=== PATIENT | female | born 1970 | race Caucasian/White ===

== ENCOUNTER 2016-09-25 10:59 | Inpatient (IN) | payer BC ==
--- NOTE | ~2016-09-25 | DS ---
Discharge Summary [facility] [address] [place]. [address] NAME: ANISA ROONEY : 66 STATUS : DIS IN PAT#: [id number] AGE: 46 ADM/REG DATE : 09/25/16 MR#: [id number] REPORT SERV DATE: 09/28/16 DICTATED BY: FRANCISCO JAVIER TANG DATE: 09/27/16 REPORT STATUS : Draft TRANSCRIBED BY: MODL DATE: 09/27/16 ADMISSION DATE: 09/25/2016 DISCHARGE DATE: 09/27/2016 DISCHARGE DIAGNOSES: 1. Gastroenteritis. 2. Urinary tract infection. 3. Anxiety disorder. INVASIVE PROCEDURES DONE DURING THIS HOSPITALIZATION: None. CONSULTANTS DURING THIS HOSPITALIZATION: Dr. Taran Ivy of Urology. BRIEF HISTORY OF PRESENT ILLNESS: The patient is a 46-year-old white female presented with nausea, vomiting, abdominal pain, and diarrhea for three days, so she was admitted. For detailed history and physical exam, please see note dictated by Dr. Barb Murray on 09/25/2016. HOSPITAL COURSE: After being admitted to the hospital, this patient was given copious amounts of IV fluids. A CT scan of the abdomen showed some inflammatory changes in the intestines consistent with enteritis. She was initially placed on Levaquin and Flagyl. There was some thought about urinary tract infection. Her urine culture did show greater than 100,000 gram-negative colony-forming units, so we continued the Levaquin and the Flagyl and they were switched to oral. This patient is currently tolerating liquids. Of incidental note, on the CT scan, there was a finding of right renal mass; so Dr. Ivy saw the patient in consultation and recommended that she follow up with him in the office as an outpatient for further treatment and evaluation. Once she felt better and she was tolerating liquids, we switched her to oral medications, and her lab work remained all stable, her white count was normal as well. Her diarrhea had significantly improved, so she is being discharged in the home setting. DISCHARGE DISPOSITION: Home. DISCHARGE ACTIVITY: As tolerated. DISCHARGE DIET: GI soft diet. DISCHARGE MEDICATIONS: Zofran 4 mg ODT q.6 p.r.n. for nausea; Klonopin 1 mg three times daily, #45 with no refills given; Levaquin 750 mg p.o. once daily for three days; Flagyl 500 mg p.o. every 8 hours for three more days; Pepcid 20 mg once daily. DISCHARGE FOLLOWUP: With the patient's primary care physician in one week, with the patient's psychiatrist as scheduled previously. More than 30 minutes spent planning this patient's discharge, reconciling medications, writing prescriptions, discussing hospital care, and followup with the patient. [address]charge Summary [address] [place] [address] NAME: ANISA ROONEY : 66 STATUS : DIS IN PAT#: [id number] AGE: 46 ADM/REG DATE : 09/25/16 MR#: [id number] REPORT SERV DATE: 09/28/16 DICTATED BY: FRANCISCO JAVIER TANG DATE: 09/27/16 REPORT STATUS : Draft TRANSCRIBED BY: GUNNAR DATE: 09/27/16 DICTATED BY: Poncho Palacios/GUNNAR Francisco Javier Tang M.D. / [id number] CC: Francisco Javier Tang M.D.
--- NOTE | ~2016-09-25 | CN ---
Consultation Report [facility] [address] [place]. [address] NAME: ANISA ROONEY : 66 STATUS : ADM IN [facility]#: [id number] AGE: 46 ADM/REG DATE : 09/25/16 MR#: [id number] REPORT SERV DATE: 09/26/16 DICTATED BY: TITO IVY DATE: 09/26/16 REPORT STATUS : Draft TRANSCRIBED BY: MODL DATE: 09/26/16 CONSULTATION DATE OF CONSULTATION: 09/26/2016 REASON FOR CONSULTATION: Right renal mass. HISTORY OF PRESENT ILLNESS: Ms. Rooney is a 46-year-old female admitted to the hospital with acute gastrointestinal illness likely colitis/enteritis. She had a CT scan to evaluate her abdominal pain, nausea, and vomiting. 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 She denies family history of genitourinary malignancy. She has no flank pain or hematuria. I have been asked to consult given these findings. PAST MEDICAL HISTORY: Notable for anxiety, urinary tract infection, renal mass as listed above. SURGICAL HISTORY: Includes D and C. SOCIAL HISTORY: Does not smoke, drink, or use illegal drugs. ALLERGIES: DOXYCYCLINE AND MINOCYCLINE. FAMILY HISTORY: No genitourinary cancer. MEDICATIONS: Reviewed and are on the chart. REVIEW OF SYSTEMS: A 12-point review of systems was performed. Pertinent positives are listed in the HPI. PHYSICAL EXAMINATION: VITAL SIGNS: Temperature 98.5, pulse is 56, blood pressure 106/57, 99% on room air. GENERAL: She is in no acute distress. She appears her stated age. HEENT: Head is normocephalic and atraumatic. LUNGS: Breathing is nonlabored. She is not in respiratory distress. Pulse is regular in rate and rhythm. ABDOMEN: Soft, nontender, nondistended. She has no CVA tenderness. NEURO: She is alert and oriented x3. LABORATORY DATA: White count 8.1, hemoglobin 13.4. Creatinine is 0.58. Urinalysis is positive for infection. IMAGING: CT scan of the abdomen and pelvis was personally reviewed and interpreted by myself. She has a 3.5 cm cystic right renal mass with nodular enhancement consistent with Consultation Report [facility] [address] [place]. [address] NAME: ANISA ROONEY : 66 STATUS : ADM IN PAT#: [id number] AGE: 46 ADM/REG DATE : 09/25/16 MR#: [id number] REPORT SERV DATE: 09/26/16 DICTATED BY: TITO IVY DATE: 09/26/16 REPORT STATUS : Draft TRANSCRIBED BY: MODL DATE: 09/26/16 cystic renal cell carcinoma. ASSESSMENT AND PLAN: 1. Cystitis. 2. Enhancing right renal mass. PLAN: Ms. Rooney has enhancing right renal mass concerning for renal cell carcinoma, clinical stage T1a. Given her young age and characteristics of the mass, she be best served with a robotic partial nephrectomy in the future. The risks and benefits, expected outcomes, were discussed in detail regarding this procedure. This was discussed with her as well. This will be scheduled as an elective procedure in October. to answer more of their questions. With regard to her bacterial urinary tract infection, please follow up the culture and treat as appropriate. Thank you for this consultation. I will continue to follow with you. CHICHO/GUNNAR Tito Ivy MD / [id number] CC: Tito Ivy MD
--- NOTE | ~2016-09-25 | HP ---
History And Physical [facility] [address] [facility] [place]. [address] NAME: ANISA ROONEY : 66 STATUS : ADM IN [facility]#: [id number] AGE: 46 ADM/REG DATE : 09/25/16 MR#: [id number] REPORT SERV DATE: 09/25/16 DICTATED BY: BARB MOTLEY DATE: 09/25/16 REPORT STATUS : Draft TRANSCRIBED BY: MODNewton DATE: 09/25/16 DATE OF ADMISSION: 09/25/2016 CHIEF COMPLAINT: Abdominal pain, nausea, vomiting, and diarrhea for three days. HISTORY OF PRESENT ILLNESS: This is a 46-year-old female with past medical history significant for anxiety disorder, she is treated by Dr. Luther Badillo, her psychiatrist, history of recurrent urinary tract infections. She does not have a primary care provider, and she is presenting today to [facility] with a three-day history of nausea, vomiting, diarrhea, and abdominal pain. It is important to note that the patient according to her, she has a history of anxiety disorder. Her psychiatrist according to the patient changed her Ativan and Xanax for one week, started her on Klonopin for her anxiety, but for three days, she has been presenting with abdominal pain, diarrhea, nausea, vomiting, and severe weakness. She says she has not experienced these episodes before and she has not taken any antibiotics recently. She did not have any fever. She denies any increased urinary frequency or urgency. No hematemesis. No melena. No hematochezia. No other complaints. The patient denies any recent hospitalization. After initial evaluation in the emergency room, Hospitalist Service has been asked for admission, further evaluation, and treatment. PAST MEDICAL HISTORY: Significant for anxiety disorder and urinary tract infection. PAST SURGICAL HISTORY: Includes D and C. SOCIAL HISTORY: Denies tobacco, alcohol, or IV drugs. ALLERGIES: SHE IS ALLERGIC TO DOXYCYCLINE AND MINOCYCLINE. FAMILY HISTORY: Significant for cancer. MEDICATIONS: Listed as her home medications include Klonopin. REVIEW OF SYSTEMS: A 14-point review of system has been obtained and pertinent positives have been listed into the history of present illness. Otherwise, negative except those underlying above. PHYSICAL EXAMINATION: VITAL SIGNS: Currently, the patient is afebrile. Blood pressure 107/54, heart rate 54, respiratory rate 10 to 12, saturating 100% on room air. GENERAL: She is a very pleasant, ill-appearing female, in no acute distress. She is alert and oriented x3. She is nonfocal. She follows all her commands appropriately. HEENT: Show pupils are equal, round, and reactive to light. Extraocular movements intact. NECK: No JVD. No lymphadenopathy. No thyromegaly appreciated. CHEST: Eval shows bilateral air entry. Clear anteroposterior. No wheezes, crackles, or rhonchi appreciated. CARDIOVASCULAR: She has regular rate and rhythm. S1, S2 positive. No S3, no S4. No History And Physical [address] [place]. [address] NAME: ANISA ROONEY : 66 STATUS : ADM IN [facility]#: [id number] AGE: 46 ADM/REG DATE : 09/25/16 MR#: [id number] REPORT SERV DATE: 09/25/16 DICTATED BY: BARB MOTLEY DATE: 09/25/16 REPORT STATUS : Draft TRANSCRIBED BY: GUNNAR DATE: 09/25/16 murmurs, rubs, or gallops appreciated. ABDOMEN: Soft, mildly tender throughout, but no guarding, no rebound. EXTREMITIES: No clubbing, cyanosis, or edema. NEUROLOGIC: She is alert and oriented x3. She is nonfocal. She follows all her commands appropriately. LABORATORY DATA: Labs from today include sodium 141, potassium 4, chloride 107, CO2 of 27, BUN 11, creatinine 0.49, glucose is 97. Her total protein 6.7, albumin 2.8, globulin 3.9, total bilirubin 0.6, alkaline phosphatase 76, ALT 24, AST 32, lipase 87. Serum test has been negative. White count 4.9, hemoglobin 13.6, hematocrit 37.9, and platelets 202. Her UA has been positive for leukocyte esterase and nitrites, 8 white cells, and few bacteria. Urine cultures are pending. UDS positive for amphetamine and opiates. There is a CT of the abdomen and pelvis performed in the emergency room which has shown partial exophytic mass in the mild to the right kidney with cystic enhancing nodular component about 35 x 19 mm highly concerning for primary renal neoplasm, less likely representing an abscess. There is some induration of the surrounding fat planes. No renal or vein thrombosis or lymphadenopathy appreciated. Multiple fluid-filled small bowel loops in the abdomen, possible enteritis, and colon has diffusely thickened appearance, possibly related to colitis. The appendix is not visualized. There is no pericecal inflammation to suggest an acute appendicitis, and trace fluid in the pelvis present. ASSESSMENT AND PLAN: 1. This is a very pleasant 46-year-old female with nausea, vomiting, and diarrhea likely colitis/enteritis. 2. Urinary tract infection. 3. Newly diagnosed right upper and mid cystic mass measuring 35 x 19 mm, concerning for a primary renal neoplasm. 4. Depression with anxiety. 5. Severe dehydration. PLAN: 1. The patient is going to be admitted to Hospitalist Service regarding her nausea, vomiting, and diarrhea. We are going to keep her on clear liquid diet, provide supportive care, check her stools, and place her on Levaquin and Flagyl. Protonix IV as well daily. 2. Urinary tract infection. IV fluids. Check urinary cultures and place her on antibiotics. 3. Right kidney mass. We will get a renal ultrasound and consult Urology for further recommendation. 4. Depression and anxiety. Continue her Klonopin p.r.n. Ativan for severe agitation and consult Psychiatry, Dr. Bustos, for further recommendation. 5. We will provide supportive care, nausea, and pain control as well as GI and DVT prophylaxis that has been discussed extensively with the patient. All the questions have been answered in full. Further workup and recommendation pending above. History And Physical [address] [address] NAME: ANISA ROONEY : 66 STATUS : ADM IN [facility]#: [id number] AGE: 46 ADM/REG DATE : 09/25/16 MR#: [id number] REPORT SERV DATE: 09/25/16 DICTATED BY: BARB MOTLEY DATE: 09/25/16 REPORT STATUS : Draft TRANSCRIBED BY: MODL DATE: 09/25/16 It is worthwhile to note that the patient is going to be followed up by Dr. Francisco Javier Tang. CF/GUNNAR Barb Motley M.D. / [id number] CC: Poncho Singleton M.D.
[2016-09-25 13:48] LABS: BASOPHILS 0.2 %; BASOPHILS ABSOLUTE 0.01 10/3/uL (0.0-0.16); EOSINOPHILS 0.2 %; EOSINOPHILS ABSOLUTE 0.01 10/3/uL (0.0-0.53); HEMOGLOBIN 13.6 g/dL (12.0-16.0); IMMATURE GRANULOCYTES 0.4 %; IMMATURE GRANULOCYTES ABSOLUTE 0.02 10/3/uL (0.0-0.11); LYMPHOCYTES 12.1 %; MEAN CORPUSCULAR HEMOGLOB 31.9 pg (26.0-34.0); MEAN PLATELET VOLUME 10.2 fL (9.2-13.0); MONOCYTES 6.9 %; MONOCYTES ABSOLUTE 0.34 10/3/uL (0.21-1.20); NEUTROPHILS 80.2 %; NEUTROPHILS ABSOLUTE 3.96 10/3/uL (2.02-8.40); PLATELET COUNT 202 10/3/uL (150-400); RBC DISTRIBUTION WIDTH 12.5 % (12.0-16.0); RED CELL COUNT 4.27 10/6/uL (4.0-5.6); WHITE BLOOD CELLS 4.9 10/3/uL (4.5-10.5)
[2016-09-25 13:49] LABS: HEMATOCRIT 37.9 % (36.0-48.0); MANUAL DIFF NO %; MEAN CORPUS HGB CONC 35.9 g/dL (32.0-36.0); MEAN CORPUSCULAR VOLUME 88.8 fL (80-100)
[2016-09-25 14:04] LABS: BUN (BLOOD UREA NITROGEN) 11 MG/DL (6-23); CALCIUM, SERUM 8.3 MG/DL (8.5-10.4); CHLORIDE, SERUM 107 MMOL/L (96-112); CO2 (CARBON DIOXIDE) 27 MMOL/L (24-34); CREATININE 0.49 MG/DL (0.55-1.02); GFR AFRICAN AMERICAN 134 ML/MIN (>=60); GFR NON AFRICAN AMERICAN 115 ML/MIN (>=60); GLUCOSE, SERUM 97 MG/DL (60-99); SGPT(ALT) 24 U/L (5-65); SODIUM, SERUM 141 MMOL/L (135-148); TOTAL BILIRUBIN 0.6 MG/DL (0-1.2); TOTAL PROTEIN 6.7 G/DL (6.0-8.5)
[2016-09-25 14:05] LABS: A/G RATIO 0.7 (0.7-1.9); ALBUMIN 2.8 G/DL (3.5-5.0); ALKALINE PHOSPHATASE 76 U/L (45-117); GLOBULIN 3.9 G/DL (2.5-4.1); SGOT(AST) 32 U/L (5-40)
[2016-09-25 16:27] LABS: ASCORBIC ACID (UR NOT ORDER) NEG (NEG); BILIRUBIN, URINE NEGATIVE (NEG); ER URINALYSIS TAT 0 Hrs 10 Mins; KETONE, URINE 80 MG/DL (NEG); LEUKOCYTE ESTERASE(NOT OR MOD (NEG); NITRITE (URINE) POS (NEG); WBC (NOT ORDERED) (RFLEX) 8 (0-5)
[2016-09-25 16:46] LABS: AMPHETAMINES (NOT ORD) POS (NEG); BENZODIAZEPINES (NOT ORD) NEG (NEG); COCAINE (NOT ORDERED) NEG (NEG); PHENCYCLIDINE(PCP) NEG (NEG)
[2016-09-25 16:47] LABS: BARBITURATES (NOT ORDERED NEG (NEG); CANNABINOIDS (THC) NEG (NEG); OPIATES POS (NEG); TRICYCLICS NEG (NEG)
[2016-09-25] MEDS ORDERED: KLONO5 PO (17:57)
[2016-09-25 23:13] LABS: BASOPHILS 0.2 %; BASOPHILS ABSOLUTE 0.02 10/3/uL (0.0-0.16); EOSINOPHILS 0 %; IMMATURE GRANULOCYTES 0.3 %; IMMATURE GRANULOCYTES ABSOLUTE 0.03 10/3/uL (0.0-0.11); LYMPHOCYTES 8.1 %; LYMPHOCYTES ABSOLUTE 0.76 10/3/uL (0.67-4.30); MEAN CORPUS HGB CONC 35.9 g/dL (32.0-36.0); MEAN CORPUSCULAR HEMOGLOB 31.9 pg (26.0-34.0); MEAN CORPUSCULAR VOLUME 88.9 fL (80-100); MEAN PLATELET VOLUME 9.9 fL (9.2-13.0); MONOCYTES 4.7 %; MONOCYTES ABSOLUTE 0.44 10/3/uL (0.21-1.20); NEUTROPHILS 86.7 %; NEUTROPHILS ABSOLUTE 8.09 10/3/uL (2.02-8.40); PLATELET COUNT 251 10/3/uL (150-400); RBC DISTRIBUTION WIDTH 12.5 % (12.0-16.0)
[2016-09-25 23:15] LABS: HEMATOCRIT 41.8 % (36.0-48.0); MANUAL DIFF NO %; WHITE BLOOD CELLS 9.3 10/3/uL (4.5-10.5)
[2016-09-25 23:24] LABS: INTERNATIONAL NORMAL RATI 1.4 UNITS (-); PARTIAL THROMBO TIME 42.4 SEC (22.5-37.2); PROTIME (NOT ORD) 17.1 SEC (12.0-14.5)
[2016-09-25 23:38] LABS: FREE T4 1.41 NG/DL (0.76-1.46); PHOSPHORUS, SERUM 3.6 MG/DL (2.5-4.5)
[2016-09-25 23:39] LABS: ULTRASENSITIVE TSH 0.211 MCIU/ML (0.358-3.740)
[2016-09-26 00:21] LABS: PROCALCITONIN 0.56 ng/mL (<0.5)
[2016-09-26 06:54] LABS: HEMATOCRIT 39.6 % (36.0-48.0); HEMOGLOBIN 13.4 g/dL (12.0-16.0); MANUAL DIFF YES %; MEAN CORPUS HGB CONC 33.8 g/dL (32.0-36.0); MEAN CORPUSCULAR HEMOGLOB 31.2 pg (26.0-34.0); MEAN CORPUSCULAR VOLUME 92.3 fL (80-100); MEAN PLATELET VOLUME 9.7 fL (9.2-13.0); PLATELET COUNT 223 10/3/uL (150-400); RBC DISTRIBUTION WIDTH 12.7 % (12.0-16.0); RED CELL COUNT 4.29 10/6/uL (4.0-5.6); WHITE BLOOD CELLS 8.1 10/3/uL (4.5-10.5)
[2016-09-26 07:13] LABS: A/G RATIO 0.8 (0.7-1.9); ALBUMIN 2.7 G/DL (3.5-5.0); ALKALINE PHOSPHATASE 67 U/L (45-117); BUN (BLOOD UREA NITROGEN) 11 MG/DL (6-23); CALCIUM, SERUM 8.4 MG/DL (8.5-10.4); CHLORIDE, SERUM 107 MMOL/L (96-112); CREATININE 0.58 MG/DL (0.55-1.02); GFR AFRICAN AMERICAN 126 ML/MIN (>=60); GFR NON AFRICAN AMERICAN 109 ML/MIN (>=60); GLOBULIN 3.5 G/DL (2.5-4.1); GLUCOSE, SERUM 96 MG/DL (60-99); SALICYLATE 2.5 MG/DL (-); SGOT(AST) 13 U/L (5-40); SGPT(ALT) 19 U/L (5-65); SODIUM, SERUM 140 MMOL/L (135-148); TOTAL BILIRUBIN 0.5 MG/DL (0-1.2); TOTAL PROTEIN 6.2 G/DL (6.0-8.5)
[2016-09-26 07:14] LABS: ACETAMINOPHEN LEVEL (TYLENOL) < 2.0 MCG/ML (10.0-20.0); CO2 (CARBON DIOXIDE) 22 MMOL/L (24-34); POTASSIUM, SERUM 3.1 MMOL/L (3.5-5.3)
[2016-09-26 07:15] LABS: ALCOHOL < 10 MG/DL (0)
[2016-09-26 07:26] LABS: BAND NEUTROPHILS 4 %; LYMPHOCYTES 25 %; LYMPHOCYTES ABSOLUTE (CALC) 2.03 10/3/uL (0.67-4.30); MONOCYTES 12 %; MONOCYTES ABSOLUTE (CALC) 0.97 10/3/uL (0.21-1.20); PLATELET ESTIMATE ADQ (ADEQUATE); SEGMENTED NEUTROPHIL (0) 59 %; TOTAL NUCLEATED CELLS 100
[2016-09-26 07:27] LABS: RBC MORPHOLOGY NORM (NORMAL)
[2016-09-27 07:02] LABS: BUN (BLOOD UREA NITROGEN) 10 MG/DL (6-23); CALCIUM, SERUM 8.1 MG/DL (8.5-10.4); CHLORIDE, SERUM 110 MMOL/L (96-112); CO2 (CARBON DIOXIDE) 25 MMOL/L (24-34); GFR AFRICAN AMERICAN 133 ML/MIN (>=60); GFR NON AFRICAN AMERICAN 114 ML/MIN (>=60); GLUCOSE, SERUM 96 MG/DL (60-99); POTASSIUM, SERUM 3.3 MMOL/L (3.5-5.3); SODIUM, SERUM 142 MMOL/L (135-148)
[2016-09-27] MEDS ORDERED: ZOFRAN4 PO (09:46)
[2016-09-27] MEDS ORDERED: KLONO1 PO (09:47)
[2016-09-27] MEDS ORDERED: LEVAQUIN750 MG PO (09:48)
[2016-09-27] MEDS ORDERED: FLAG500TAB PO (09:48)
[2016-09-27] MEDS ORDERED: PEP20 PO (09:48)
== END 2016-09-27 11:00 | disposition home or self-care (01) | DRG 690 ==
LOC: ER 10:59 → 4SO 19:15
PROVIDERS: Emergency Medicine; Internal Medicine
DX: N30.90 Cystitis, unspecified without hematuria (principal); C64.1 Malignant neoplasm of right kidney, except renal pelvis; F41.9 Anxiety disorder, unspecified; E86.0 Dehydration; F32.9 Major depressive disorder, single episode, unspecified; Z87.440 Personal history of urinary (tract) infections; Z88.1 Allergy status to other antibiotic agents; K52.9 Noninfective gastroenteritis and colitis, unspecified
CPT/HCPCS: 74177; 80048; 80053; 80305; 80307; 81001; 82150; 83036; 83605; 83615; 83690; 83735; 84100; 84132; 84145; 84439; 84443; 84703; 85025; 85610; 85730; 87040; 87077; 87086; 87186; 87493; 87493-59; 93005; 96361; 96374; 96375; 99285; A9270-GY; J1170; J1956; J2405; J2550; Q9967